=== PATIENT | female | born 1990 | race Caucasian/White ===

== ENCOUNTER → 2017-12-01 | Outpatient (CLI) | payer MEDICARE, OTHER ==
--- NOTE | 2017-12-01 12:22 | WWHP ---
[facility] - HISTORY AND PHYSICAL DATE OF SERVICE: 12/01/2017 CHIEF COMPLAINT: The patient is here for her routine gynecologic exam. HPI: This is a 27-year-old G0 with an LMP of 11/25/2017. The patient is here with her mother who was present in the room throughout the appointment. The patient states her periods were regular every month but became slightly irregular during the past few months. She has had episodes when the periods started earlier than she expected. During the past month, her menstrual cycle seemed more normal. She did not document the dates of her bleeding. She states she does have some cramping with her periods. Her mother states she typically will take Tylenol p.r.n. She is otherwise without complaints. The patient has never been sexually active. PAST MEDICAL HISTORY: Autism and seasonal allergies. MEDICATIONS: 1. Clonidine 0.1 mg b.i.d. 2. Strattera 40 mg daily. 3. Fluvoxamine 150 mg b.i.d. 4. Claritin 24 hours 1 daily. 5. The patient also takes a multivitamin daily. ALLERGIES: No known drug allergies. PAST SURGICAL HISTORY: [place] teeth removed in the past. 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 Menarche was at age 11. SOCIAL HISTORY: She denies tobacco, alcohol, and drug use. 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 She is not seeing anybody at this time and is not sexually active. REVIEW OF SYSTEMS: Weight has been stable. She denies respiratory, cardiac or GI problems. PHYSICAL EXAM: Blood pressure 118/74, height 5 feet 2 inches, weight 131 pounds, BMI 24. temperature 96.9, pulse 100. This is a well-developed, well-nourished, white female, who is alert and oriented x3, in no acute distress. The patient has a fairly child-like demeanor and is very polite and cooperative. HEENT is within normal limits. NECK: Supple without mass or thyromegaly. CHEST AND LUNGS: Clear to auscultation. HEART: Regular rate and rhythm. Breasts are without mass or discharge. Axillary exam is negative for adenopathy. BACK: Negative for CVA tenderness. ABDOMEN: Soft, nontender, without palpable masses. PELVIC EXAM: Normal external genitalia. The introitus is virginal. The small Deloris speculum was used. The cervix and vagina appeared normal. There is no unusual discharge. Digital examination was performed with a single finger and there is no cervical motion tenderness. The uterus is mid position, nongravid size and nontender. There are no palpable adnexal masses or tenderness. Rectal exam was deferred. EXTREMITIES: Nontender. IMPRESSION: 1. A 27-year-old, virginal female with normal gynecologic exam. 2. Recent menstrual irregularity that seems to have improved according to the patient. 3. History of autism. PLAN: 1. Pap smear was deferred since she had a normal one less than 2 years ago. 2. Self-breast examination was discussed. 3. Good nutrition and exercise were discussed. 4. Osteoporosis prevention was also discussed. 5. The patient will keep a menstrual calendar. She will review this with her mother and return if she is having menstrual problems. 6. She can also use [id number] ibuprofen as directed for menstrual cramping as needed. 7. She will return in one year and p.r.n. MMODL / IJN: [id number] /
== END | disposition home or self-care (01) ==
LOC: WWCWWP 10:43
PROVIDERS: ATTEND Obstetrics & Gynecology
DX: Z53.9 Procedure and treatment not carried out, unspecified reason (principal)

== ENCOUNTER → 2019-01-24 | Outpatient (CLI) | payer MEDICARE, OTHER ==
[2019-01-24 13:02] VITALS: BP 113/75; PULSE 128; RESP 16; TEMP 98; BMI 24.3
--- NOTE | 2019-01-24 13:44 | P.HPOB ---
History of Present Illness H&P Date: 01/24/19 Chief Complaint: The patient is here for her routine gynecologic exam. This is a 28 year old G0 with an LMP of 01/16/2019. The patient is here with her mother who was present in the room throughout the appointment. The patient's menstrual periods have been regularly month but did have some irregularity with light bleeding throughout the month of November 2017. The patient and her mother have not consistently kept the menstrual calendar up-to-date, but they say the periods have been more regular since one year ago. The patient is without complaints and denies any sexual activity. Review of Systems The patient has gained 2 pounds over the last year. She denies respiratory, cardiac, or G.I. problems. Past Medical History Additional Past Medical History / Comment(s): autism. Seasonal allergies. 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 History of Any Multi-Drug Resistant Organisms: None Reported Past Surgical History: No Surgical Hx Reported Past Psychological History: Anxiety Smoking Status: Never smoker Medications and Allergies Home Medications Medication Instructions Recorded Confirmed Type Atomoxetine HCl [Strattera] 40 mg PO 03/14/14 03/14/14 History cloNIDine [Catapres-TTS] 0.1 mg PO BID 03/14/14 01/24/19 History fluvoxaMINE [Luvox] 150 mg PO BID 03/14/14 01/24/19 History Allergies Allergy/AdvReac Type Severity Reaction Status Date / Time No Known Allergies Allergy Verified 01/24/19 13:02 Exam Vital Signs Temp Pulse Resp BP Pulse Ox 01/24/19 12:49 98.0 F 128 H 16 113/75 98 Intake and Output 01/23/19 01/24/19 01/24/19 22:59 06:59 14:59 Other: Weight 60.328 kg Height 5'2", weight 133 pounds, BMI 24.3. This is a well-developed well-nourished white female who is alert and oriented times 3 in no acute distress. The patient has a child-like demeanor and is very polite and cooperative. HEENT: Within normal limits. NECK: Supple without mass or thyromegaly. CHEST AND LUNGS: Clear to auscultation. HEART: Regular rate and rhythm. BREASTS: Are without mass or discharge. AXILLARY EXAM: Negative for adenopathy. BACK: Negative for CVA tenderness. ABDOMEN: Soft, nontender, without palpable masses. PELVIC EXAM: Normal external genitalia. The introitus is virginal. The small narrow Bains speculum was used. Cervix and vagina appear normal. There is no unusual discharge. There is no evidence of prolapse. The uterus is midposition, nongravid size and nontender. Digital examination was performed with a single finger and there is no tenderness There are no palpable adnexal masses or tenderness. RECTAL EXAM: deferred EXTREMITIES: Nontender. IMPRESSION: 1. 28-year-old virginal female with normal gynecologic exam. 2. Improvement in regularity of menstrual periods. 3. History of autism. PLAN: 1. Pap smear was performed. 2. Self breast awareness was discussed with the patient. 3. Good nutrition and exercise were discussed. 4. The patient and her mother will continue to try to keep a menstrual calendar and will call if she is having menstrual problems. 5. She was advised to return in one year for her annual well woman exam.
== END | disposition home or self-care (01) ==
LOC: EEVIPCON 12:40 → WWCWWP 12:40
PROVIDERS: ATTEND Obstetrics & Gynecology
DX: Z53.9 Procedure and treatment not carried out, unspecified reason (principal)

== ENCOUNTER → 2021-11-25 | Outpatient (CLI) | payer MEDICARE, OTHER ==
[2021-11-25 14:21] VITALS: BP 102/72; PULSE 108; RESP 18; TEMP 98
--- NOTE | 2021-11-25 15:23 | P.HPOB ---
History of Present Illness H&P Date: 11/25/21 Chief Complaint: The patient is here for her routine gynecologic exam. This is a 31-year-old G0 with an LMP of 11/18/2021. The patient has never been sexually active. She states her menstrual periods have become more unpredictable. There have been times where she has a monthly menstrual period, but then can have some spotting after the flow has stopped. She has not kept track of them. She is otherwise without gynecologic complaints. She has had some redness under the breasts that extends to the midline. She denies any significant itching. Her mother states that they have sometimes used an antifungal cream which has helped, but they have not used it consistently. Review of Systems The patient has gained 7 pounds over the last year. She denies respiratory, cardiac, or G.I. problems. Past Medical History Additional Past Medical History / Comment(s): autism. Seasonal allergies. 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 History of Any Multi-Drug Resistant Organisms: None Reported Past Surgical History: No Surgical Hx Reported Past Psychological History: Anxiety Smoking Status: Never smoker Past Alcohol Use History: None Reported Past Drug Use History: None Reported Additional History: She is single and has never been sexually active. Medications and Allergies Home Medications Medication Instructions Recorded Confirmed Type Atomoxetine HCl [Strattera] 40 mg PO DAILY 03/14/14 11/25/21 History cloNIDine [Catapres-TTS] 0.1 mg PO BID 03/14/14 11/25/21 History fluvoxaMINE [Luvox] 150 mg PO BID 03/14/14 11/25/21 History Ascorbic Acid [Vitamin C] 500 mg PO DAILY 11/25/21 11/25/21 History Cholecalciferol [Vitamin D3 (25 25 mcg PO DAILY 11/25/21 11/25/21 History Mcg = 1000 Iu)] Fexofenadine/Pseudoephedrine 1 each PO BID 11/25/21 11/25/21 History [Ju-D 12 Hour Tablet] Multivitamin [Multivitamins Adult 1 each PO DAILY 11/25/21 11/25/21 History Gummies] Zinc 50 mg PO DAILY 11/25/21 11/25/21 History Allergies Allergy/AdvReac Type Severity Reaction Status Date / Time No Known Allergies Allergy Verified 11/25/21 14:09 Exam Vital Signs Temp Pulse Resp BP Pulse Ox 11/25/21 14:13 98.0 F 108 H 18 102/72 96 Intake and Output 11/25/21 11/25/21 11/25/21 06:59 14:59 22:59 Other: Weight 63.503 kg Height 5 feet one half inches, weight 140 pounds, BMI 27.3. This is a well-developed well-nourished white female who is alert and oriented times 3 in no acute distress. The patient has a childlike demeanor and is very polite and cooperative. Today she is very talkative and appropriate. HEENT: Within normal limits. NECK: Supple without mass or thyromegaly. CHEST AND LUNGS: Clear to auscultation. HEART: Regular rate and rhythm. BREASTS: Are without mass or discharge. Beneath the medial portion of breasts there is redness in the crease which extends to the midline. AXILLARY EXAM: Negative for adenopathy. BACK: Negative for CVA tenderness. ABDOMEN: Soft, nontender, without palpable masses. PELVIC EXAM: Normal external genitalia. The introitus is virginal. The vaginal opening allows for a small Bains speculum but I am not able to open the speculum without significant discomfort. I was unable to directly visualize the cervix because of this. Cervix and vagina visualization is very limited secondary to this as well. There is no unusual discharge. A digital exam was performed with my smallest digit since this is the only finger that could be inserted into the very small introitus. The cervix is palpable and is normal to palpation. There is no tenderness. There is no evidence of prolapse. The uterus is midposition, nongravid size and nontender. There are no palpable adnexal masses or tenderness. RECTAL EXAM: Deferred. EXTREMITIES: Nontender. IMPRESSION: 1. 31-year-old virginal female with normal gynecologic exam. 2. Limited visualization of the vagina. 3. History of autism. 4. Erythema intertrigo under the breasts. PLAN: 1. Pap smear cotest was performed. The Pap smear test is a blind sampling since the cervix could not be directly visualized due to the virginal introitus. 2. Self breast awareness was discussed with the patient. We have also discussed symptoms associated with inflammatory breast cancer. 3. The patient will keep a menstrual calendar and call if menstrual problems 4. She is to use an [id number] antifungal cream beneath the breasts. She was instructed to contact a geospatial applications developer for further evaluation if the redness is not improving. 5. She was advised to return in one year for her annual well woman exam.
--- NOTE | 2021-12-10 10:14 | P.PN ---
Progress Note - Text Progress Note Date: 12/10/21 OUTPATIENT FOLLOW-UP NOTE TEST(S)/RESULTS: Test results from 11/25/2021 include negative Pap smear and negative high-risk HPV testing. METHOD OF NOTIFICATION: The patient's mother(guardian) was notified by phone. PATIENT COMMENTS: She states that the patient has had small amount of bleeding after the exam and seems to be turning brownish. DIAGNOSIS: Negative Pap smear cotest. Post exam light bleeding. This may be related to the exam itself or some menstrual irregularity. DISCUSSION: I have asked mother to try to ascertain the frequency and amount of the bleeding and to call if bleeding is increasing or is prolonged. She'll keep a menstrual calendar. PLAN: She was advised to return in one year for her annual well woman exam and as needed.
== END | disposition home or self-care (01) ==
LOC: WWCWWP 14:00
PROVIDERS: ATTEND Obstetrics & Gynecology
DX: Z53.9 Procedure and treatment not carried out, unspecified reason (principal)

== ENCOUNTER → 2022-10-01 | Outpatient (CLI) | payer MEDICARE, OTHER ==
--- NOTE | 2022-10-01 16:59 | US ---
EXAMINATION TYPE: US pelvic complete DATE OF EXAM: 10/01/2022 COMPARISON: NONE CLINICAL HISTORY: 32-year-old female N92.0 METROMENORRHAGIA. Irregular menses. TECHNIQUE: Transabdominal (TA FINDINGS: EXAM MEASUREMENTS: Uterus: 6.4 x 3.3 x 3.8 cm Endometrial Stripe: 1.0 cm Right Ovary: 2.4 x 2.0 x 2.2 cm Left Ovary: 2.7 x 2.9 x 2.4 cm 1. Uterus: Anteverted and otherwise wnl 2. Endometrium: wnl 3. Right Ovary: wnl 4. Left Ovary: Anechoic area 2.1 x 2.1 x 1.6 cm 5. Bilateral Adnexa: wnl 6. Posterior cul-de-sac: wnl IMPRESSION: 1. A 2.1 cm dominant follicle or functional cyst of the left ovary. 2. Endometrial stripe thickness of 1.0 cm should correspond to the secretory phase of the menstrual c ycle.
== END | disposition home or self-care (01) ==
LOC: RADUSWWP 12:19
PROVIDERS: ATTEND Family Medicine
DX: N92.0 Excessive and frequent menstruation with regular cycle (principal); N83.202 Unspecified ovarian cyst, left side
CPT/HCPCS: 76856

== ENCOUNTER → 2024-01-18 | Outpatient (CLI) | payer MEDICARE, OTHER ==
[2024-01-18 08:44] VITALS: BP 118/79; PULSE 101; RESP 18; TEMP 98.7
--- NOTE | 2024-01-18 08:53 | P.HPOB ---
History of Present Illness H&P Date: 01/18/24 Chief Complaint: The patient is here for her routine gynecologic exam. This is a 33-year-old G0 with an LMP of 01/05/2024. The patient has never been sexually active. Last year the patient stated her menstrual periods have been unpredictable. This year she states they are less problematic, but she lost her menstrual calendar. The patient is not the best historian and has some difficulty expressing how often the menstrual periods are coming. She is otherwise without complaints. Review of Systems Her weight has been stable. Respiratory: She is getting over a cold. She denies cardiac and GI problems Past Medical History Additional Past Medical History / Comment(s): autism. Seasonal allergies. 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 History of Any Multi-Drug Resistant Organisms: None Reported Past Surgical History: No Surgical Hx Reported Additional Past Surgical History / Comment(s): Ear tubes. [place] teeth removed. Past Psychological History: Anxiety Smoking Status: Never smoker Past Alcohol Use History: None Reported Past Drug Use History: None Reported Additional History: She is single and lives with her mother. She has never been sexually active. - Past Family History Mother Additional Family Medical History / Comment(s): Her her mother there is no family history of cancer of the breast. Medications and Allergies Home Medications Medication Instructions Recorded Confirmed Type Atomoxetine HCl [Strattera] 40 mg PO DAILY 03/14/14 01/18/24 History cloNIDine [Catapres-TTS] 0.1 mg PO BID 03/14/14 01/18/24 History fluvoxaMINE [Luvox] 150 mg PO BID 03/14/14 01/18/24 History Ascorbic Acid [Vitamin C] 500 mg PO DAILY 11/25/21 01/18/24 History Fexofenadine/Pseudoephedrine 1 each PO BID 11/25/21 01/18/24 History [Ju-D 12 Hour Tablet] Multivitamin [Multivitamins Adult 1 each PO DAILY 11/25/21 01/18/24 History Gummies] Allergies Allergy/AdvReac Type Severity Reaction Status Date / Time No Known Allergies Allergy Verified 01/18/24 08:10 Exam Vital Signs Temp Pulse Resp BP Pulse Ox 01/18/24 08:13 98.7 F 101 H 18 118/79 100 Intake and Output 01/17/24 01/18/2424 22:59 06:59 14:59 Other: Weight 68.492 kg Height 5 feet 3 inches, weight 151 pounds, BMI 26.7 This is a well-developed well-nourished white female who is alert and oriented times 3 in no acute distress. The patient is somewhat talkative today and has a somewhat childlish demeanor. HEENT: Within normal limits. NECK: Supple without mass or thyromegaly. CHEST AND LUNGS: Clear to auscultation. HEART: Regular rate and rhythm. BREASTS: Are without mass or discharge. AXILLARY EXAM: Negative for adenopathy. BACK: Negative for CVA tenderness. ABDOMEN: Soft, nontender, without palpable masses. PELVIC EXAM: Normal external genitalia. The introitus is virginal. The opening would not allow entrance of the smallest disposable speculum. Visualization was on possible to about 2 cm past the introitus. Digital examination could not be performed with my index finger and my smallest digit was the only thing that could enter the introitus. Bimanual examination was somewhat limited. With this exam there were no palpable vaginal or pelvic masses. There is no evidence of prolapse. There are no palpable adnexal masses or tenderness. RECTAL EXAM: Deferred. EXTREMITIES: Nontender. IMPRESSION: 1. 33-year-old virginal female with limited unremarkable examination. The examination was limited because of the virginal introitus. 2. History of irregular menses which have been less of a problem this year for the patient. PLAN: 1. Pap smear was deferred since she had a negative HPV testing on 11/25/2021. Limited Pap smear at that time was also negative. 2. Self breast awareness was discussed with the patient. We have also discussed symptoms associated with inflammatory breast cancer. 3. Mammogram screening will be started at age 40. 4. I have given the patient and her mother another menstrual calendar and we'll try to keep track of her menstrual periods and they were instructed to return if having menstrual problems. 5. At her next exam we will have the pediatric speculum available for the exam. 6. She was advised to return in one year for her annual well woman exam and as needed.
== END ==
LOC: WWCWWP 07:48
PROVIDERS: ATTEND Obstetrics & Gynecology
DX: N92.6 Irregular menstruation, unspecified (principal)

== ENCOUNTER → 2024-10-04 | Outpatient (CLI) | payer MEDICARE, OTHER ==
--- NOTE | 2024-10-05 08:23 | XR ---
EXAMINATION TYPE: XR lumbar spine 2 or 3V DATE OF EXAM: 10/04/2024 4:56 PM COMPARISON: None. 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 FINDINGS: There are 5 lumbar-type vertebral bodies. Pedicles are intact. Disc heights are preserved. Vertebral body heights are preserved. IMPRESSION: 1. Unremarkable three-view lumbar spine [facility], , 10/05/2024 8:21 AM
--- NOTE | 2024-10-05 08:24 | XR ---
EXAMINATION TYPE: XR thoracic spine complete DATE OF EXAM: 10/04/2024 4:56 PM COMPARISON: None. 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 FINDINGS: There are 12 thoracic type vertebral bodies. Pedicles are intact. Disc heights are preserved. Vertebr al body heights are preserved. IMPRESSION: 1. Unremarkable 3 view thoracic spine [facility], , 10/05/2024 8:22 AM
== END | disposition home or self-care (01) ==
LOC: RADXRMAIN 16:20
PROVIDERS: ATTEND Family Medicine
DX: M17.12 Unilateral primary osteoarthritis, left knee (principal)
CPT/HCPCS: 72072; 72100